=== PATIENT | female | born 1995 | race Hispanic/Latino ===

== ENCOUNTER 2017-12-13 22:53 | Emergency (ER) | payer OTHER ==
[~2017-12-13] VITALS: Ht 152.4 cm; Wt 63.0 kg
== END 2017-12-13 23:30 | disposition left against medical advice (07) ==
LOC: FSED 22:53
DX: R10.2 Pelvic and perineal pain (principal); R10.814 Left lower quadrant abdominal tenderness; N83.209 Unspecified ovarian cyst, unspecified side; Z53.29 Procedure and treatment not carried out because of patient's decision for other reasons
CPT/HCPCS: 99282